=== PATIENT | female | born 1940 | race Caucasian/White ===

== ENCOUNTER 2020-01-21 15:42 | Inpatient (IN) | payer OTHER ==
[~2020-01-21] VITALS: Ht 152.4 cm; Wt 101.3 kg
[2020-01-21 15:50] VITALS: Ht 152.4 cm; Wt 101.3 kg
[2020-01-21 17:44] LABS: BASOPHIL % 0.3 % (0-2); PLATELET COUNT 273 x10^3mcL (130-400); RED CELL DISTRIBUTION WIDTH 13.7 % (11.5-14.5)
[2020-01-21 17:46] LABS: microscopic required? YES; urine erythrocyte TRACE (NEGATIVE)
[2020-01-21 18:07] LABS: FREE T4 1.36 ng/dL (0.76-1.46); FREE THYROXINE INDEX 3.2 ug/dL (1.4-4.5); T4(THYROXINE) 8.9 ug/dL (4.7-13.3)
[2020-01-21 18:13] LABS: ALBUMIN 3.9 g/dL (3.4-5.0); ALKALINE PHOSPHATASE 72 U/L (46-116); ALT/SGPT 24 U/L (14-59); AST/SGOT 27 U/L (15-37); BILIRUBIN TOTAL 0.58 mg/dL (0.20-1.00); CALCIUM 8.7 mg/dL (8.5-10.1); CARBON DIOXIDE 28.3 mmol/L (21-32); CHLORIDE SERUM 84 mmol/L (98-107); CHOLESTEROL 181 mg/dL (<200); CREATININE SERUM 0.7 mg/dL (0.6-1.0); GLUCOSE SERUM 99 mg/dL (74-106); LIPASE 75 IU/L (73-393); POTASSIUM SERUM 3.9 mmol/L (3.5-5.1); TOTAL PROTEIN, SERUM 7.3 g/dL (6.4-8.2); TRIGLYCERIDES 86 mg/dL (<150)
[2020-01-21 18:22] LABS: CHOLESTEROL/HDL RATIO 2.9; HDL CHOLESTEROL 63 mg/dL (40-60); T3 TOTAL 0.95 ng/mL
[2020-01-21 18:23] LABS: SODIUM SERUM 118 mmol/L (136-145)
[2020-01-21] MEDS ORDERED: COZAAR100 MG PO (18:45)
[2020-01-21] MEDS ORDERED: TIROSINT25 MC1 PO (18:45)
[2020-01-21 20:27] VITALS: BP 134/59
[2020-01-21 22:37] VITALS: BP 129/65
[2020-01-22 05:47] VITALS: BP 120/60
[2020-01-22 06:31] LABS: BASOPHIL % 0.4 % (0-2); PLATELET COUNT 250 x10^3mcL (130-400); RED CELL DISTRIBUTION WIDTH 13.9 % (11.5-14.5)
[2020-01-22 06:52] LABS: CALCIUM 8.1 mg/dL (8.5-10.1); CHLORIDE SERUM 89 mmol/L (98-107); CREATININE SERUM 0.7 mg/dL (0.6-1.0); GLUCOSE SERUM 92 mg/dL (74-106)
[2020-01-22 07:05] LABS: SODIUM SERUM 124 mmol/L (136-145)
[2020-01-22 08:11] VITALS: BP 129/63
[2020-01-22 12:13] VITALS: BP 106/50
[2020-01-22 16:14] VITALS: BP 103/46
[2020-01-22 20:21] VITALS: BP 116/53
[2020-01-23 05:55] VITALS: BP 142/59
[2020-01-23 06:42] LABS: BASOPHIL % 0.4 % (0-2); PLATELET COUNT 273 x10^3mcL (130-400); RED CELL DISTRIBUTION WIDTH 13.8 % (11.5-14.5)
[2020-01-23 06:43] LABS: ALBUMIN 3.4 g/dL (3.4-5.0); ALKALINE PHOSPHATASE 68 U/L (46-116); ALT/SGPT 24 U/L (14-59); AST/SGOT 27 U/L (15-37); BILIRUBIN TOTAL 0.51 mg/dL (0.20-1.00); CALCIUM 8.6 mg/dL (8.5-10.1); CARBON DIOXIDE 28.1 mmol/L (21-32); CHLORIDE SERUM 94 mmol/L (98-107); CREATININE SERUM 0.7 mg/dL (0.6-1.0); GLUCOSE SERUM 86 mg/dL (74-106); PHOSPHOROUS 3.8 mg/dL (2.5-4.9); POTASSIUM SERUM 4.7 mmol/L (3.5-5.1); SODIUM SERUM 128 mmol/L (136-145); TOTAL PROTEIN, SERUM 6.9 g/dL (6.4-8.2)
[2020-01-23 08:18] VITALS: BP 121/58
[2020-01-23 12:13] VITALS: BP 128/51
[2020-01-23 16:21] VITALS: BP 135/61
[2020-01-23 20:48] VITALS: BP 126/73
[2020-01-24 05:48] VITALS: BP 140/61
[2020-01-24 06:28] LABS: BASOPHIL % 0.6 % (0-2); PLATELET COUNT 250 x10^3mcL (130-400); RED CELL DISTRIBUTION WIDTH 13.7 % (11.5-14.5)
[2020-01-24 06:56] LABS: ALBUMIN 3.4 g/dL (3.4-5.0); ALKALINE PHOSPHATASE 67 U/L (46-116); ALT/SGPT 22 U/L (14-59); AST/SGOT 26 U/L (15-37); BILIRUBIN TOTAL 0.5 mg/dL (0.20-1.00); CALCIUM 8.2 mg/dL (8.5-10.1); CARBON DIOXIDE 29.8 mmol/L (21-32); CHLORIDE SERUM 93 mmol/L (98-107); CREATININE SERUM 0.7 mg/dL (0.6-1.0); GLUCOSE SERUM 93 mg/dL (74-106); POTASSIUM SERUM 4.3 mmol/L (3.5-5.1); SODIUM SERUM 126 mmol/L (136-145); TOTAL PROTEIN, SERUM 6.3 g/dL (6.4-8.2)
[2020-01-24 08:30] VITALS: BP 134/68
[2020-01-24 12:24] VITALS: BP 136/69
[2020-01-24 21:53] VITALS: BP 141/68
[2020-01-25 07:34] LABS: ALBUMIN 3.6 g/dL (3.4-5.0); ALKALINE PHOSPHATASE 69 U/L (46-116); ALT/SGPT 20 U/L (14-59); AST/SGOT 29 U/L (15-37); BILIRUBIN TOTAL 0.5 mg/dL (0.20-1.00); CALCIUM 8.5 mg/dL (8.5-10.1); CARBON DIOXIDE 28.3 mmol/L (21-32); CHLORIDE SERUM 96 mmol/L (98-107); CREATININE SERUM 0.6 mg/dL (0.6-1.0); GLUCOSE SERUM 86 mg/dL (74-106); PHOSPHOROUS 3.5 mg/dL (2.5-4.9); POTASSIUM SERUM 4.1 mmol/L (3.5-5.1); SODIUM SERUM 130 mmol/L (136-145); TOTAL PROTEIN, SERUM 6.9 g/dL (6.4-8.2)
[2020-01-25 08:04] VITALS: BP 168/80
[2020-01-25 08:18] LABS: BASOPHIL % 0.4 % (0-2); PLATELET COUNT 266 x10^3mcL (130-400); RED CELL DISTRIBUTION WIDTH 13.9 % (11.5-14.5)
[2020-01-25 11:56] VITALS: BP 126/55
[2020-01-25 13:13] VITALS: BP 126/55
== END 2020-01-25 15:13 | disposition home or self-care (01) | DRG 643 ==
LOC: ED 15:42 → DU 19:00
PROVIDERS: Internal Medicine; Specialist; ADMIT Internal Medicine; ATTEND Internal Medicine
DX: E22.2 Syndrome of inappropriate secretion of antidiuretic hormone (principal); J18.9 Pneumonia, unspecified organism; J44.0 Chronic obstructive pulmonary disease with (acute) lower respiratory infection; J90 Pleural effusion, not elsewhere classified; I10 Essential (primary) hypertension; Z20.828 Contact with and (suspected) exposure to other viral communicable diseases; E03.9 Hypothyroidism, unspecified; E66.01 Morbid (severe) obesity due to excess calories; J45.909 Unspecified asthma, uncomplicated; K27.9 Peptic ulcer, site unspecified, unspecified as acute or chronic, without hemorrhage or perforation; E86.0 Dehydration; Z79.899 Other long term (current) drug therapy
CPT/HCPCS: 82962; 83880; 84439; C9113; G0378; J0456; J0696; J1885; J1940; J1956; J2405; J2550; J7030; J7050